=== PATIENT | male | born 1990 | race Caucasian/White ===

== ENCOUNTER 2018-03-08 10:29 | Day surgery (SDC) | payer OTHER ==
[2018-03-07 11:52] VITALS: BMI 25.8
[2018-03-08] MEDS ORDERED: BUPIVACAINE HCL 0.25% 125 MG/50 ML VIAL ONE (11:02)
[2018-03-08] MEDS ORDERED: MIDAZOLAM HCL 2 MG/2 ML SINGLE DOSE VIAL ONE (11:21)
[2018-03-08] MEDS ORDERED: SUCCINYLCHOLINE CHLORIDE 200 MG/10 ML VIAL ONE (11:40)
[2018-03-08] MEDS ORDERED: PROPOFOL 20 ML ONE ×2 (11:40)
[2018-03-08] MEDS ORDERED: ONDANSETRON 4 MG/2 ML VIAL ONE (11:51)
[2018-03-08] MEDS ORDERED: DEXAMETHASONE SOD PHOSPHATE 4 MG/1 ML VIAL ONE (11:51)
[2018-03-08] MEDS ORDERED: KETOROLAC TROMETHAMINE 30 MG/1 ML VIAL ONE (11:51)
[2018-03-08] MEDS ORDERED: ceFAZolin SODIUM 1 GM VIAL ONE (11:51)
[2018-03-08] MEDS ORDERED: oxyCODONE HCL 5 MG TABLET PO PRN ×2 (12:53)
[2018-03-08] MEDS ORDERED: ONDANSETRON 4 MG/2 ML VIAL IVPUSH PRN (12:53)
[2018-03-08] MEDS ORDERED: PROMETHAZINE HCL 25 MG/1 ML VIAL IVPUSH PRN (12:53)
[2018-03-08 13:52] VITALS: TEMP 98.4
[2018-03-08 14:39] VITALS: BP 112/75; PULSE 68
--- NOTE | 2018-03-08 19:52 | OP ---
DATE OF OPERATION: 03/08/2018 PREOPERATIVE DIAGNOSIS: Right comminuted intraarticular displacement radius fracture. POSTOPERATIVE DIAGNOSIS: Right comminuted intraarticular displacement radius fracture. OPERATIVE PROCEDURE: 1. Open reduction, internal fixation right comminuted intraarticular displacement radius fracture with internal fixation of 3 or more fragments. 2. Right brachioradialis tenotomy. ANESTHESIA: Regional. COMPLICATIONS: None. ESTIMATED BLOOD LOSS: Minimal. INDICATION FOR PROCEDURE: The patient is a 27-year-old male with the above finding, indicated for operative treatment. Risks, benefits, and alternatives were discussed with patient at length, proper informed consent was obtained. PROCEDURE: After proper identification of the patient and correct operative site, patient was brought to the operating room and placed supine on the operating room table, all bony prominences well padded. Sedation and regional anesthesia were given, intravenous antibiotics were given. Timeout procedure was performed. The right upper extremity was prepped and draped in the usual sterile fashion. A well padded tourniquet was placed with a sterile prep. Esmarch bandage to exsanguinate the right upper extremity. Tourniquet inflated to 250 mmHg. Longitudinal incision made over the flexor carpi radialis tendon. Incision was taken sharply through skin with blunt and sharp dissection in subcutaneous tissues flexor carpi radialis tendon along with the contents of the carpal canal were bluntly and gently retracted ulnarly for the remainder of the procedure. Pronator quadratus was found to be intact and was divided longitudinally. The fracture was characterized by splaying of the volar and dorsal surfaces as well as impaction of the articular surface. A small 3-mm drill hole was placed into the volar cortex of the distal radius, and a reduction tool was entered through the articular surface pieces. An Acumed Acu-Loc plate was then placed in the volar aspect of the distal radius which secured the fragments, and buttressed the volar distal radius as well as supporting the articular pieces. Prior to the reduction, it was necessary to perform brachioradialis tenotomy in order to achieve full reduction, and this was performed subperiosteally. Once all the screws were placed, radiographs were taken to confirm proper reduction and placement and sizing of all hardware. The wound was irrigated with saline, repaired in layers including pronator quadratus with a 4-0 Vicryl and 4-0 Monocryl suture. Distal interval was stressed and found to be stable. Patient was placed into sterile dressings and a splint and was reversed from anesthesia and brought to to the recovery room in stable condition. He tolerated the procedure well. Efraín Kelley, the retail assistant store manager, was integral throughout the procedure. Procedure could not have been performed without a skilled operative retail assistant store manager experienced in distal radius fracture surgery. Chayo DE [id number]
== END 2018-03-08 14:30 | disposition home or self-care (01) ==
LOC: FASU 10:29
PROVIDERS: ATTEND Orthopaedic Surgery Hand Surgery
PROC: 0LN50ZZ Release Right Lower Arm and Wrist Tendon, Open Approach (ICD-10-PCS; 2018-03-08)
PROC: 0PSH04Z Reposition Right Radius with Internal Fixation Device, Open Approach (ICD-10-PCS; principal; 2018-03-08 11:51)
DX: S52.571A Other intraarticular fracture of lower end of right radius, initial encounter for closed fracture (principal); X58.XXXA Exposure to other specified factors, initial encounter; Y93.9 Activity, unspecified; Y92.9 Unspecified place or not applicable
CPT/HCPCS: 94760